=== PATIENT | male | born 1980 | race Caucasian/White ===

== ENCOUNTER 2022-07-13 12:48 | Emergency (ER) | payer BC, SELFPAY ==
--- NOTE | 2022-07-13 12:58 | ED.WOUNDLAC ---
HPI - Wound/Laceration General Chief Complaint: Wound/Laceration Stated Complaint: FINGER LACERATION Time Seen by Provider: 07/13/22 13:34 Source: patient Mode of arrival: ambulatory Limitations: no limitations History of Present Illness HPI narrative: Yg is a 41-year-old male patient presenting to the clinic today with complaints of a hand laceration. He reports he was turkey hunting today and shot a turkey and went up to get the turkey and the turkey used his spur and cut the proximal volar aspect just below his 2nd finger. Wound is gaped. Related Data Allergies Allergy/AdvReac Type Severity Reaction Status Date / Time No Known Allergies Allergy Unknown Verified 07/13/22 14:26 Review of Systems Review of Systems: Pertinent positives per HPI. Patient denies any fever, chills, rash, headache, visual changes, dizziness, cough, runny nose, sore throat, shortness of breath, chest pain, palpitations, nausea, vomiting, diarrhea, constipation, abdominal pain, or any urinary issues. [facility] Family History Family History Father Family history of alcoholism Social History Social History Smoking status: Never smoker Alcohol intake: current Comments At the time of my signature, I reviewed and agree with the nursing past medical, surgical, social, and family history. There is no relevant family history pertinent to the patient complaint. Exam Narrative: General: Well-developed, well nourished, in no apparent distress Head: Normocephalic, atraumatic. Cardio: Regular rate and rhythm, s1 and s2 normal, no murmur appreciated. Resp: Clear to auscultation bilaterally, no rhonchi, rales, wheezing or rubs. Integumentary: [place], warm, and dry, intact without lesion, 1.5cm gaping wound to the volar webbing aspect of the right distal palm just below the 2nd digit. ROM of the 2nd digit is normal Course Course Emergency Course: Portions of this record may have been created with voice recognition software. Level of Care: Express Care Visit Vital Signs Vital signs: Vital Signs Temperature 36.6 C 07/13/22 13:13 Pulse Rate 63 07/13/22 13:13 Respiratory Rate 16 07/13/22 13:13 Blood Pressure 125/79 07/13/22 13:13 Pulse Oximetry 99 07/13/22 13:13 Oxygen Delivery Room Air 07/13/22 13:13 Temperature 36.6 C 07/13/22 13:13 Pulse Rate 63 07/13/22 13:13 Respiratory Rate 16 07/13/22 13:13 Blood Pressure 125/79 07/13/22 13:13 Pulse Oximetry 99 07/13/22 13:13 Oxygen Delivery Room Air 07/13/22 13:13 Vital signs reviewed Procedures Laceration Laceration 1: Date: 07/13/22 Site: hand Side (If applicable): right Size (cm): 1.5 Description: linear and irregular Depth: simple, single layer Local Anesthetic: lidocaine 1% Amount of anesthesia used (mL): 4 Pre-repair: wound explored, irrigated, irrigated extensively and minor debridement ====== Skin Level ====== Skin layer closed with: nylon Size (cm): 4-0 Number of sutures: 3 Technique: simple, interrupted ====== Subcutaneous Layer ====== ====== Muscle Layer ====== ====== Tendon Layer ====== Dressing: Verbal consent obtained for laceration repair. Risk and benefits explained and patient voiced understanding. Area was cleansed with Betadine and a 25 gauge needle was then used to instill (4) ml of 1% lidocaine without epi into the wound edges. Area was prepped and draped using sterile technique. A 4-0 suture on a p needle was used to place (3) interrupted sutures bringing the wound edges together- well approximated. Patient tolerated procedure well. Triple antibiotic ointment and sterile dressing applied. MDM - Wound/Laceration MDM Narrative Medical decision making narrative: At the time of visit patient is
[2022-07-13 13:13] VITALS: BP 125/79; PULSE 63; RESP 16; TEMP 36.6; O2SAT 99
== END 2022-07-13 14:24 | disposition home or self-care (01) ==
PROVIDERS: Emergency Provider Nurse Practitioner Family; PCP Emergency Medicine
DX: S61.411A Laceration without foreign body of right hand, initial encounter (principal); W61.49XA Other contact with turkey, initial encounter
CPT/HCPCS: 12011; 99203; G0463

== ENCOUNTER 2022-07-22 10:36 | Emergency (ER) | payer BC, SELFPAY ==
[2022-07-22 10:46] VITALS: BP 111/77; PULSE 58; RESP 16; TEMP 36.8; O2SAT 100
--- NOTE | 2022-07-22 11:06 | ED.WOUNDLAC ---
HPI - Wound/Laceration General Stated Complaint: stitches Time Seen by Provider: 07/22/22 11:06 Source: patient Mode of arrival: ambulatory Limitations: no limitations History of Present Illness HPI narrative: 41 y/o male presented for suture removal. Patient was seen on 07/13/22 for laceration to right hand palmar surface of MCP. #3 sutures placed at that time. Patient has taken abx as directed. He kept the wound covered with a bandaid often due to risk for contamination. Denies redness, swelling or pain. Related Data Allergies Allergy/AdvReac Type Severity Reaction Status Date / Time No Known Allergies Allergy Unknown Verified 07/22/22 11:18 Review of Systems Review of Systems: CONSTITUTIONAL: Denies body aches, fever, chills, or sweats. EYES: Denies visual changes, redness, or discharge. ENT: Denies rhinorrhea, congestion CARDIOVASCULAR: Denies chest pain, palpitations, or edema. RESPIRATORY: Denies cough or dyspnea. GASTROINTESTINAL: Denies abdominal pain, nausea, vomiting, or diarrhea. SKIN: per HPI MUSCULOSKELETAL: Denies back pain, joint pain, or myalgia. NEUROLOGIC: Denies headache, numbness, tingling, or weakness. [facility] Past Medical History Medical History (Updated 07/22/22 @ 11:27 by Luz Ruvalcaba APRN) No pertinent past medical history Family History Family History Father Family history of alcoholism Social History Social History Smoking status: Never smoker Alcohol intake: current Comments At time of signature, I have reviewed and agree with nursing past medical, surgical, social and family history unless otherwise noted. Please see nursing chart for further information. There is no relevant family history pertinent to the presenting complaint Exam Narrative: GENERAL: Well-appearing HEAD: Normocephalic, atraumatic. EYES: conjunctivae clear, and EOMI. ENT: Mucous membranes moist. Oropharynx without edema, erythema or lesions. NECK: Supple. No lymphadenopathy CHEST: Clear to auscultation. HEART: Regular rate and rhythm. SKIN: Warm, dry. right hand palmar surface with laceration and 3 sutures over MCP. NEURO: Alert and oriented x3. Course Course Emergency Course: Patient is aware of diagnosis, understands and agrees to treatment plan. Anticipatory guidance given. Patient agrees to follow-up as directed and is aware of reasons to seek care at the emergency department. Portions of this record may have been created with voice recognition software Level of Care: Express Care Visit Vital Signs Vital signs: Vital Signs Temperature 98.3 F 07/22/22 10:46 Pulse Rate 58 L 07/22/22 10:46 Respiratory Rate 16 07/22/22 10:46 Blood Pressure 111/77 07/22/22 10:46 Pulse Oximetry 100 07/22/22 10:46 Oxygen Delivery Room Air 07/22/22 10:46 Temperature 98.3 F 07/22/22 10:46 Pulse Rate 58 L 07/22/22 10:46 Respiratory Rate 16 07/22/22 10:46 Blood Pressure 111/77 07/22/22 10:46 Pulse Oximetry 100 07/22/22 10:46 Oxygen Delivery Room Air 07/22/22 10:46 Reviewed Procedures Other Procedure Procedure 1: Other Procedure: #3 sutures removed from the right hand. No swelling, redness, or purulent drainage noted. Appears healing well. Due to approx 1-2mm gaping area steri strip applied to the site. MDM - Wound/Laceration MDM Narrative Medical decision making narrative: Patient tolerated suture removal well. Steri strip applied. Advised supportive measures and signs/symptoms to go to the ER. Pt is appropriate for outpt treatment and f/u. Differential Diagnosis Differential diagnosis: Likely laceration, abrasion and avulsion of skin Discharge Plan Discharge Clinical Impression: Encounter for removal of sutures Patient Disposition: Home, Self-Care Condition: Stable Instructions: Steristrips (ED) Additi
== END 2022-07-22 11:25 | disposition home or self-care (01) ==
PROVIDERS: Emergency Provider Nurse Practitioner Family; PCP Emergency Medicine
DX: S61.411D Laceration without foreign body of right hand, subsequent encounter (principal); X58.XXXD Exposure to other specified factors, subsequent encounter
CPT/HCPCS: 99211; G0463